=== PATIENT | male | born 1945 | race Caucasian/White ===

== ENCOUNTER 2022-08-31 13:47 | Outpatient (OUT) | payer OTHER, SELFPAY ==
[2022-08-31 14:16] LABS: Hemoglobin 14.7 g/dL (14.0-18.0)
[2022-08-31 15:30] LABS: Alanine Aminotransferase 57 U/L (16-63); Albumin Globulin Ratio 1.1; Albumin Level 3.9 g/dL (3.4-5.0); Alkaline Phosphatase 103 U/L (46-116); Anion Gap 9.1; Aspartate Amino Transferase 33 U/L (15-37); BUN Creatinine Ratio 20.6; Bilirubin Total 0.4 mg/dL (0.2-1.0); Calcium 9.1 mg/dL (8.5-10.1); Carbon Dioxide 30.4 mmol/L (21.0-32.0); Chloride 107 mmol/L (98-107); Cholesterol 139 mg/dL (<=200); Estimated GFR (African America >60 (>=60); Estimated GFR (Non-African Ame >60 (>=60); Globulin 3.7 g/dL; Glucose 102 mg/dL (74-106); HDL Cholesterol 47 mg/dL (40-60); LDL Cholesterol Calculated 77.4 mg/dL; Potassium 3.5 mmol/L (3.5-5.1); Sodium 143 mmol/L (136-145); Thyroid Stimulating Hormone 0.749 uIU/mL (0.358-3.740); Total Protein 7.6 g/dL (6.4-8.2); Triglycerides 73 mg/dL (<=150); VLDL CHOLESTEROL 14.6 mg/dL
[2022-09-01 04:11] LABS: Vitamin B12 719 pg/mL (232-1245)
== END 2022-08-31 13:48 | disposition home or self-care (01) ==
LOC: LAB 13:52
DX: E78.5 Hyperlipidemia, unspecified (principal); I10 Essential (primary) hypertension; F03.A0 Unspecified dementia, mild, without behavioral disturbance, psychotic disturbance, mood disturbance, and anxiety
CPT/HCPCS: 36415; 80053; 80061; 82607; 82746; 84443; 85014; 85018